=== PATIENT | female | born 1975 | race Hispanic/Latino ===

== ENCOUNTER 2019-06-12 15:30 | Emergency (ER) | payer MEDICAID, OTHER ==
[2019-06-12] MEDS ORDERED: ALBUTEROL SULFATE 0.083% 2.5 MG/3 ML INH IH ONE (15:54)
[2019-06-12] MEDS ORDERED: DEXAMETHASONE SOD PHOSPHATE 4 MG/ML 5ML VIAL ONE (15:57)
[2019-06-12] MEDS ORDERED: GUAIFENESIN-CODEINE 5 ML SYRUP ONE (16:20)
[2019-06-12] MEDS ORDERED: BENZONATATE 100 MG CAPSULE PO ONE (16:20)
== END 2019-06-12 17:38 | disposition home or self-care (01) ==
LOC: EDH 15:30
DX: M94.0 Chondrocostal junction syndrome [Tietze] (principal); J20.9 Acute bronchitis, unspecified; I10 Essential (primary) hypertension
CPT/HCPCS: 71046; 87804 ×2; 94640; 96372; 99285; J1100

== ENCOUNTER 2022-04-01 18:15 | Emergency (ER) | payer OTHER ==
[~2022-04-01] VITALS: Ht 162.6 cm; Wt 99.8 kg
[2022-04-01 18:28] VITALS: BP 138/90
[2022-04-01] MEDS ORDERED: IBUP-1493 PO (22:34)
[2022-04-01] MEDS ORDERED: AMOX1TAB16 PO (22:34)
[2022-04-01] MEDS: IBUPROFEN 800 MG TAB PO ONE (22:50)
[2022-04-01] MEDS: AMOX/CLAV 875/125MG TAB PO ONE (22:50)
== END 2022-04-01 22:54 | disposition home or self-care (01) ==
LOC: EDH 18:15
DX: J03.90 Acute tonsillitis, unspecified (principal); H66.92 Otitis media, unspecified, left ear; I10 Essential (primary) hypertension
CPT/HCPCS: 87804; 87880

== ENCOUNTER 2024-01-27 09:12 | Emergency (ER) | payer BC ==
[~2024-01-27] VITALS: Ht 162.6 cm; Wt 99.8 kg
[~2024-01-27 09:12] MED LIST: AMOX1TAB16 PO; IBUP-1493 PO
[2024-01-27 11:03] LABS: BASOPHILS # (AUTO) 0.04 K/uL (0.00-0.20); BASOPHILS % (AUTO) 0.5 % (0.0-5.0); EOSINOPHILS % (AUTO) 1.4 % (0.0-8.0); HEMATOCRIT 40.1 % (36-48); IMMATURE GRANULOCYTE ABSOLUTE 0.02 K/uL (0-1); LYMPHOCYTES # (AUTO) 2.3 K/uL (1.0-4.8); LYMPHOCYTES % (AUTO) 30.9 % (21.0-51.0); MEAN CORPUSCULAR HEMOGLOBIN 29.9 pg (27.0-33.0); MEAN CORPUSCULAR HGB CONC 35.4 g/dL (32.0-36.0); MEAN CORPUSCULAR VOLUME 84.4 fL (79-99); MONOCYTES # (AUTO) 0.5 K/uL (0.1-1.0); NEUTROPHILS # (AUTO) 4.4 K/uL (1.8-7.7); NEUTROPHILS % (AUTO) 59.9 % (40.0-77.0); PLATELET COUNT (AUTO) 341 K/uL (130-400); RED BLOOD CELL COUNT(AUTO) 4.75 MIL/uL (4.00-5.50); RED CELL DISTRIBUTION WIDTH 13.6 % (11.0-15.5); WHITE BLOOD COUNT (AUTO) 7.3 K/uL (4.8-10.8)
[2024-01-27 11:10] LABS: CREATININE 0.8 mg/dL (0.5-1.0); POTASSIUM 4.3 mmol/L (3.5-5.1)
[2024-01-27 11:14] LABS: ALBUMIN 3.6 g/dL (3.5-5.0); BILIRUBIN,DIRECT 0.2 mg/dL (0.0-0.3); BILIRUBIN,TOTAL 0.6 mg/dL (0.2-1.0); TOTAL PROTEIN, SERUM 8.1 g/dL (6.0-8.3)
[2024-01-27] MEDS: FAMOTIDINE 20MG VIAL IV ONE (11:40)
[2024-01-27 11:58] LABS: APPEARANCE,URINE CLEAR (CLEAR); BILIRUBIN,URINE NEGATIVE (NEGATIVE); COLOR,URINE LIGHT-YELLOW (YELLOW); GLUCOSE, URINE (UA) NEGATIVE (NEGATIVE); KETONES,URINE NEGATIVE (NEGATIVE); LEUKOCYTE ESTERASE ,URINE 75 Leu/uL (NEGATIVE); NITRATE,URINE NEGATIVE (NEGATIVE); OCCULT BLOOD,URINE NEGATIVE (NEGATIVE); PH,URINE 5.5 (5.0-8.0); PROTEIN,URINE NEGATIVE (NEGATIVE); UROBILINOGEN,URINE 0.2 mg/dL (0.2-1.0)
[2024-01-27 12:03] LABS: ADD UA MICROSCOPIC YES
[2024-01-27 12:14] LABS: BACTERIA,URINE RARE /HPF (None Seen); MUCUS,URINE RARE LPF (None Seen); RBC,URINE 0-1 /HPF (0-1); SQUAMOUS EPITHELIAL CELL,UR RARE /HPF (0-2); WBC,URINE 26-50 /HPF (0-1)
[2024-01-27] MEDS: ondanSETRON 4MG INJ IVP ONE (12:40)
[2024-01-27] MEDS: ketOROlac 15MG/ML VIAL (15MG/ML) IV ONE (12:41)
[2024-01-27] MEDS ORDERED: MACR100 PO (12:43)
[2024-01-27] MEDS ORDERED: IBUP-2076 PO (12:43)
[2024-01-27] MEDS ORDERED: ONDA-243 PO (12:43)
[2024-01-27 12:56] VITALS: BP 144/87; PULSE 69; RESP 14; TEMP 98.1; O2SAT 98
== END 2024-01-27 12:59 | disposition home or self-care (01) ==
LOC: EDH 09:12
DX: K80.20 Calculus of gallbladder without cholecystitis without obstruction (principal); I10 Essential (primary) hypertension; Z79.899 Other long term (current) drug therapy; Z98.890 Other specified postprocedural states
CPT/HCPCS: 99284; 96374; 76705; 96375; 80076; 80048; 83690; 85025; 87086; 81001; 81025; 36415; J3490; J2405; J1885